=== PATIENT | male | born 1960 | race African-American/Black ===

== ENCOUNTER 2024-04-13 11:42 | Emergency (ER) | payer OTHER, SELFPAY ==
[2024-04-13 11:47] VITALS: BP 143/96
[2024-04-13 11:55] VITALS: BMI 18.6
[2024-04-13 12:00] VITALS: BP 129/99
[2024-04-13 12:27] LABS: % Basophils 0.2 % (0-2); % Eosinophils 0.2 % (0-6); % Immature Granulocytes 0.4 % (0-0.5); % Lymphocytes 15.9 % (20.5-51.1); % Monocytes 8.4 % (1.7-9.3); % Neutrophils 74.9 % (42.2-75.2); Absolute Lymphocytes 1.4 10^3/uL (1.2-3.4); Absolute Monocytes 0.7 10^3/uL (0.1-0.6); Absolute Neutrophils 6.4 10^3/uL (1.4-6.5); Hematocrit 46.1 % (39.0-52.0); Hemoglobin 14.4 g/dL (13.0-18.0); Mean Corp Hgb Conc. 31.2 g/dL (33.0-37.0); Mean Corpuscular Hgb 24.6 pg (27.0-31.0); Mean Corpuscular Volume 78.8 fL (80.0-94.0); Mean Platelet Volume 9.7 fL (7.4-10.4); Nucleated Red Blood Cells % 0 % (-); Platelet Count 216 10^3/uL (130-400); Red Blood Cell Count 5.85 10^6/uL (4.70-6.10); Red Cell Dist. Width 22.8 % (11.5-14.5); White Blood Cell Count 8.6 10^3/uL (4.8-10.8)
[2024-04-13 12:31] LABS: Blood Urea Nitrogen 22 mg/dl (9-20); Calcium 9.9 mg/dl (8.4-10.2); Carbon Dioxide 28 mmol/L (22-30); Chloride 96 mmol/L (98-107); Estimated Creatinine Clearance 77 ml/min; Glucose 128 mg/dl (70-99); Sodium 133 mmol/L (135-145); eGFR > 60.00
[2024-04-13 13:00] VITALS: BP 141/105
[2024-04-13 13:14] LABS: Normal RBC Morphology No
[2024-04-13 13:16] LABS: Ovalocytes FEW
[2024-04-13 13:17] LABS: Macrocytosis Slight
--- NOTE | 2024-04-13 13:37 | ED.GENMED ---
History of Present Illness
General
Chief Complaint: Heart Rate Problem
Source: patient
Time Seen by Provider: 04/13/24 13:23
History of Present Illness
History of Present Illness:
63-year-old male presents to the emergency room from the [facility] correction. Patient has been incarcerated there for the past 3 to 4 days. He has a history of atrial fibrillation which she states is chronic. He is under a rate control strategy.
He is prescribed Lopressor and Eliquis. He does not believe he got his Eliquis when he initially was admitted to the present. I did call the correction and they verified that he did receive a dose today. However he has not been receiving Lopressor as
they 'could not verify the prescription'. Patient also complaining of some nausea and sensation that he is withdrawing from opiates. Patient is prescribed methadone. He does not believe he is been getting that at the present either.
Phy Exam
Physical Exam
Physical Exam:
General: Awake, Alert, Oriented X3. No acute distress, thin, frail-appearing.
Vitals: Tachycardic
Head: Atraumatic
Eyes: Pupils equal, EOMI
Throat: Airway intact, no exudates
Neck: Trachea midline
Lungs: Clear and equal b/l
Heart: Regular rate, no murmurs
Abd: Soft, Nontender, No pulsatile mass
Neuro: Nonfocal
Skin: Warm, dry, no rash
Extremities: pulses equal b/l, no edema
Course
Orders/Labs/Results
Orders:
Orders
04/13/24 11:46
Electrocardiogram (*1) Urgent
Reason for Study: Atrial Fibrillation
EKG- Treatment ONCE
04/13/24 12:07
Basic Metabolic Panel Urgent
Complete Blood Count/With Diff Urgent
04/13/24 13:36
Metoprolol [Lopressor] 5 mg IV NOW STA
04/13/24 14:41
Acetaminophen with Codeine [Tylenol #3] 2 tablet PO NOW STA
04/13/24 14:42
Metoprolol [Lopressor] 5 mg IV NOW STA
04/13/24 14:59
Metoprolol [Lopressor] 100 mg PO NOW STA
Abnormal Lab Results
04/13/24
12:07
MCV 78.8 L fL
(80.0-94.0)
MCH 24.6 L pg
(27.0-31.0)
MCHC 31.2 L g/dL
(33.0-37.0)
RDW 22.8 H %
(11.5-14.5)
Absolute Monos (auto) 0.7 H 10^3/uL
(0.1-0.6)
Lymphocytes % 15.9 L %
(20.5-51.1)
Sodium 133 L mmol/L
(135-145)
Chloride 96 L mmol/L
(98-107)
BUN 22 H mg/dl
(9-20)
Glucose 128 H mg/dl
(70-99)
04/13/24 12:07
04/13/24 12:07
Vital Signs
Initial and Last Documented VS:
Initial Vital Signs
Temp Pulse Resp BP Pulse Ox
97.6 F 123 18 143/96 100
04/13/24 11:47 04/13/24 11:47 04/13/24 11:47 04/13/24 11:47 04/13/24 11:47
Last Documented Vital Signs
Temp Pulse Resp BP Pulse Ox
97.6 F 121 18 125/101 100
04/13/24 11:47 04/13/24 14:48 04/13/24 14:00 04/13/24 14:48 04/13/24 13:00
MDM/Problems Addressed
Differential Diagnosis Includes:
A-fib with rapid ventricular response, SVT, anemia, opiate withdrawal
MDM/Problems Addressed:
Patient sent to the emergency room from the correction. Patient has a known history of A-fib and the patient tells me he is chronically in A-fib. He had an ablation which did not result in long-term sinus rhythm and therefore his doctors in ER decided
to just follow a rate control strategy. He is doing this with Lopressor twice a day and Eliquis twice a day. Patient does not believe he received his Eliquis in the period of time when he was first arrested and then became incarcerated. I did
call the present and they are giving him his the Eliquis currently but have not been giving the Lopressor because 'they could not verify the prescription'. So this simply a situation where the patient's rate is not controlled because he has not
been provided the appropriate medications. We have given the patient 2 doses of IV Lopressor to bring his rate down. He is in the 90s to low 100s. Will give a dose of oral Lopressor and he can be discharged back to the correction.
Chronic conditions affecting care: Arrhythmia (Atrial fibrillation)
Acute Exacerbation and/or Progression of Chronic Illness: Arrhythmia
*Pulse Oximetry
Patient hypoxic: no
*EKG
Interpreted by ED Provider?: Yes
Interpretation: abnormal
Heart Rate: 126
Rate: tachycardiac
Rhythm: a-fib
[place]: normal axis
Interval: normal interval
QRS Pattern: normal QRS
Ischemia: non-specific ST changes
*[employer]sperson Interpretation
Rate: tachycardiac
Interpretation: abnormal
Heart Rate: 126
Rhythm: a-fib
*Critical Care Note
Total Time (30-74mins, 75-104mins- exclusive of procedures): Not Applicable
ED Attending Note
-
Portions of this chart may have been created with voice recognition software.� Occasional wrong word or��sound alike� substitutions may have occurred due to the inherent limitations of voice recognition software.
Discharge Plan
Departure
Patient Disposition: [facility]
Date of Disposition: 04/13/24
Time of Disposition: 14:59
Condition: Good
Discharge Problem:
Atrial fibrillation with RVR
Instructions: Atrial Fibrillation (DC)
Prescriptions:
New
metoprolol tartrate [Lopressor] 100 mg tablet
100 mg PO BID Qty: 60 0RF
Referrals:
[facility] [Family Provider] -
Interventions
Interventions:
*Risk Screen - Suicide Last Done: 04/13/24 11:54
*General Assessment Last Done: 04/13/24 11:54
*Neglect/Abuse Screening Last Done: 04/13/24 11:54
ED- Fall Risk Assessment Last Done: 04/13/24 11:57
*ED COVID-19 Vaccine History Last Done: 04/13/24 11:54
ED- Cardiac Assessment Last Done: 04/13/24 11:56
ED- Pulmonary Assessment Last Done: 04/13/24 11:56
Discharge Date and Time
Print Language: VIETNAMESE
[2024-04-13] MEDS: LOPRESSOR 5 MG IV ×2 (13:43→14:48)
[2024-04-13 14:00] VITALS: BP 136/95
[2024-04-13 14:45] VITALS: BP 125/101
[2024-04-13] MEDS: TYLENOL #3 2 TABLET PO (14:47)
[2024-04-13 15:00] VITALS: BP 112/84
[2024-04-13] MEDS: LOPRESSOR 100 MG PO (15:20)
== END 2024-04-13 16:05 ==
LOC: EMR 11:42
PROVIDERS: EMERGENCY PHYSICIAN Emergency Medicine
DX: I48.91 Unspecified atrial fibrillation (principal); Z79.01 Long term (current) use of anticoagulants
CPT/HCPCS: 99284; 96374; 96376; 80048; 85025; 93005

== ENCOUNTER 2024-05-05 08:52 | Emergency (ER) | payer OTHER, SELFPAY ==
[2024-05-05 09:07] VITALS: BP 149/105; BMI 21.8
--- NOTE | 2024-05-05 09:34 | ED.GENMED ---
History of Present Illness
General
Chief Complaint: Abdominal Pain
Time Seen by Provider: 05/05/24 09:24
History of Present Illness
History of Present Illness:
Patient is a 63-year-old male with history of A-fib, COPD, substance use, inguinal hernia s/p repair presenting to the emergency department abdominal pain. Patient states that he has had a left-sided hernia for many months now. He states that
before it would go back and easily. He does note that before it would go back in and out, when he would cough or strain. However now for the past few weeks he has not been able to get up again. He does state that he has been having some
constipation but he is on a bowel regimen and he does have history of constipation. He denies any fevers or chills. No changes overlying his hernia. He also notes he has been more short of breath lately and his hands have been slightly more
swollen. He does have history of venous stasis and states that his legs are at baseline. He denies any chest pain. No nausea vomiting. No diarrhea. No abdominal pain.
Phy Exam
Physical Exam
Physical Exam:
GENERAL: in no acute distress
HEENT: normocephalic, extraocular movements intact, moist oral mucosa
NECK: normal inspection
RESPIRATORY: no respiratory distress, clear to auscultation bilaterally
CARDIOVASCULAR: regular rate and rhythm
ABDOMEN/: soft, non-distended, non-tender to palpation, no rebound or guarding
Groin: Chaperoned by MOISES Mcdonald: Patient swelling to the left inguinal region with no overlying skin changes. Mild tenderness to the posterior left scrotum
EXTREMITIES: non-tender, bilateral lower extremity swelling with venous stasis changes
NEUROLOGIC: awake and alert, moves all extremities
SKIN: warm
Course
Orders/Labs/Results
Orders:
Orders
05/05/24 09:32
US Groin (Imaging Only) LT Urgent
Comment:
Reason For Exam: left inguinal hernia
US Scrotum Urgent
Comment:
Reason For Exam: left testicular pain
05/05/24 09:34
Electrocardiogram (*1) Urgent
Reason for Study: Shortness of Breath
EKG- Treatment ONCE
05/05/24 09:35
CR Chest - 2 Views Urgent
Comment:
Reason For Exam: sob
05/05/24 12:13
Complete Blood Count/With Diff Urgent
Comprehensive Metabolic Panel Urgent
NT-proBNP Urgent
Troponin I Urgent
Urinalysis Urgent
Date Specimen was Collected: 05/05/24
Time Specimen was Collected: 12:12
Abnormal Lab Results
05/05/24
12:13
RBC 4.42 L 10^6/uL
(4.70-6.10)
Hgb 11.4 L g/dL
(13.0-18.0)
Hct 36.1 L %
(39.0-52.0)
MCH 25.8 L pg
(27.0-31.0)
MCHC 31.6 L g/dL
(33.0-37.0)
RDW 22.4 H %
(11.5-14.5)
Absolute Monos (auto) 0.7 H 10^3/uL
(0.1-0.6)
Monocytes % 10.4 H %
(1.7-9.3)
Carbon Dioxide 31 H mmol/L
(22-30)
05/05/24 12:13
05/05/24 12:13
Vital Signs
Initial and Last Documented VS:
Initial Vital Signs
Pulse Resp Pulse Ox
92 10 100
05/05/24 09:03 05/05/24 09:03 05/05/24 09:03
Last Documented Vital Signs
Temp Pulse Resp BP Pulse Ox
98.1 F 90 23 144/97 100
05/05/24 09:07 05/05/24 12:45 05/05/24 12:45 05/05/24 12:00 05/05/24 11:15
MDM/Problems Addressed
Differential Diagnosis Includes:
Patient is a 63-year-old man presenting to the emergency department with left-sided inguinal swelling as well as some shortness of breath and ongoing leg swelling. On arrival vitals unremarkable. On exam patient does have some left inguinal
swelling. Will rule out obstructive/strangulated hernia. Will obtain ultrasound. Given the shortness of breath and swelling concern for pulmonary edema/new onset heart failure. Could be atypical ACS versus pneumonia though less likely. Will
check blood work with troponin BNP EKG and chest x-ray
*Critical Care Note
Total Time (30-74mins, 75-104mins- exclusive of procedures): Not Applicable
Update Note
Update Note:
Ultrasound consistent with this possible epididymal orchitis. Groin ultrasound is consistent with a nonspecific cyst likely reactive inguinal lymph node. No signs of hernia. Blood work does show elevated BNP. Chest x-ray per my interpretation
with no significant pulmonary vascular congestion. I have low suspicion for new onset heart failure. Likely secondary to the leg swelling. Patient does state that he was on Lasix but is not on it currently. Will prescribe short course Lasix.
Patient to follow-up with the medical team at [facility] about the shortness of breath leg swelling. Regarding the lymph node patient advised to follow with medical team at [facility] if it does not resolve. Will discharge him with antibiotics for the
infection as well as Lasix.
ED Attending Note
-
Portions of this chart may have been created with voice recognition software.� Occasional wrong word or��sound alike� substitutions may have occurred due to the inherent limitations of voice recognition software.
Discharge Plan
Departure
Patient Disposition: Home (Routine Discharge)
Date of Disposition: 05/05/24
Time of Disposition: 12:56
Patient with high blood pressure during this ER visit?: No
Discharge Problem:
Epididymitis, Lymph node enlargement
Prescriptions:
New
furosemide [Lasix] 20 mg tablet
20 mg PO DAILY 3 Days Qty: 3 0RF
levofloxacin 500 mg tablet
500 mg PO DAILY 10 Days Qty: 10 0RF
No Action
metoprolol tartrate [Lopressor] 100 mg tablet
100 mg PO BID Qty: 60 0RF
Referrals:
[facility],Fac[facility] [Family Provider] -
Activity Restrictions/Additional Instructions:
You were seen in the Emergency Department today for groin swelling and leg swelling. While you were here I started you on a water pill called Lasix. Please take it for 3 days and then follow-up with your medical team to have it continued. Please
make sure you follow-up with the medical team for an ultrasound on your lymph node. I did prescribe you antibiotics for your infection. Please take it as prescribed.
We would like for you to follow up with your primary care physician for further evaluation. If you experience fever, worsening of your symptoms, or develop any other new or concerning symptoms, please return to the Emergency Department immediately.
Please see the attached sheet for additional information.
Interventions
Interventions:
*Risk Screen - Suicide Last Done: 05/05/24 08:57
*General Assessment Last Done: 05/05/24 08:57
*Neglect/Abuse Screening Last Done: 05/05/24 08:57
*ED COVID-19 Vaccine History Last Done: 05/05/24 09:07
UJ-[id number]-[id number] Assessment Last Done: 05/05/24 09:13
Discharge Date and Time
Print Language: STATELESS
[2024-05-05 10:00] VITALS: BP 144/104
[2024-05-05 12:00] VITALS: BP 144/97
[2024-05-05 12:25] LABS: Urine Albumin Negative (Neg - Trace); Urine Bilirubin Negative (Negative); Urine Character Clear (Clear); Urine Color Yellow; Urine Glucose Negative (Negative); Urine Ketone Negative (Negative); Urine Leukocyte Negative (Negative); Urine Nitrite Negative (Negative); Urine Occult Blood Negative (Negative); Urine Urobilinogen Negative (Neg - 1+)
[2024-05-05 12:31] LABS: % Basophils 0.8 % (0-2); % Eosinophils 4.4 % (0-6); % Immature Granulocytes 0.2 % (0-0.5); % Lymphocytes 24.8 % (20.5-51.1); % Monocytes 10.4 % (1.7-9.3); % Neutrophils 59.4 % (42.2-75.2); Absolute Basophils 0.1 10^3/uL (0-0.2); Absolute Eosinophils 0.3 10^3/uL (0-0.7); Absolute Lymphocytes 1.7 10^3/uL (1.2-3.4); Absolute Monocytes 0.7 10^3/uL (0.1-0.6); Hematocrit 36.1 % (39.0-52.0); Hemoglobin 11.4 g/dL (13.0-18.0); Mean Corp Hgb Conc. 31.6 g/dL (33.0-37.0); Mean Corpuscular Hgb 25.8 pg (27.0-31.0); Mean Corpuscular Volume 81.7 fL (80.0-94.0); Mean Platelet Volume 9.4 fL (7.4-10.4); Nucleated Red Blood Cells % 0 % (-); Platelet Count 240 10^3/uL (130-400); Red Blood Cell Count 4.42 10^6/uL (4.70-6.10); Red Cell Dist. Width 22.4 % (11.5-14.5); White Blood Cell Count 6.7 10^3/uL (4.8-10.8)
[2024-05-05 12:33] LABS: ALT (SGPT) 27 U/L (0-50); AST (SGOT) 41 U/L (17-59); Albumin 3.7 g/dl (3.5-5.0); Alkaline Phosphatase 106 U/L (38-126); Blood Urea Nitrogen 18 mg/dl (9-20); Calcium 9.4 mg/dl (8.4-10.2); Carbon Dioxide 31 mmol/L (22-30); Chloride 99 mmol/L (98-107); Estimated Creatinine Clearance 82 ml/min; Glucose 76 mg/dl (70-99); Potassium 4.5 mmol/L (3.5-5.1); Sodium 137 mmol/L (135-145); Total Bilirubin 0.4 mg/dl (0.2-1.3); Total Protein 6.7 g/dl (6.3-8.2); eGFR > 60.00
[2024-05-05 12:44] LABS: NT-proBNP 1940 pg/ml; Troponin I < 0.012 ng/ml
[2024-05-05 13:22] LABS: Anisocytosis 2+; Hypochromasia 1+; Normal RBC Morphology No; Target Cells 1+
== END 2024-05-05 13:15 | disposition home or self-care (01) ==
LOC: EMR 08:52
PROVIDERS: EMERGENCY PHYSICIAN Student in an Organized Health Care Education/Training Program
DX: N45.1 Epididymitis (principal); R59.9 Enlarged lymph nodes, unspecified; I48.91 Unspecified atrial fibrillation; J44.9 Chronic obstructive pulmonary disease, unspecified
CPT/HCPCS: 99285; 71046; 76870; 76882; 80053; 81003; 83880; 84484; 85025; 93005; 93976

== ENCOUNTER 2024-05-20 19:53 | Emergency (ER) | payer OTHER, SELFPAY ==
--- NOTE | 2024-05-20 20:00 | ED.GENMED ---
History of Present Illness
General
Chief Complaint: Swelling
Time Seen by Provider: 05/20/24 20:00
History of Present Illness
History of Present Illness:
TIME OF INITIAL ENCOUNTER: 8:15 PM
HPI: Patient came in by corrections officers from [facility]. They over the past month or so he has been having swelling of the left groin 'more often than not'. There is some discomfort associated with it however he
usually can get the hernia back in. However he was told that this was not a hernia and that he was treated for epididymitis. The nurse practitioner at the facility given additional antibiotics as symptoms persisted. There has been no vomiting.
He is hungry and wants something to eat.
EXAM:
GENERAL: Well appearing in no distress, appears comfortable
HEENT: Moist oral mucosa, poor dentition
CARDIOVASCULAR: No murmurs, normal heart rate, irregular rhythm, No chest wall tenderness
PULMONARY: No respiratory distress, breath sounds are clear and equal
ABDOMEN: Soft with no peritoneal signs, no tenderness, there is a large inguinal hernia approximately softball sized on the left side
NEUROLOGIC: Excellent strength all extremities, no coordination deficits
PSYCHIATRIC: Appropriate mental status, normal insight and judgement
EXTREMITIES: Nontender, no edema, moves all extremities equally
SKIN: No rash, no lesions
NUMBER AND COMPLEXITY OF PROBLEMS ADDRESSED AT THE ENCOUNTER
� Chronic conditions affecting care: COPD, A-fib, history of substance abuse
� Acute Exacerbation and/or Progression of Chronic Illness: This is an acute/subacute problem
� Differential Diagnosis includes: Inguinal hernia, nonreducible hernia, incarcerated hernia, bowel obstruction
AMOUNT AND/OR COMPLEXITY OF DATA TO BE REVIEWED AND ANALYZED
� I performed an independent evaluation of and my interpretation is:
EKG:
CT:
X-rays:
Laboratory Studies:
Other:
� Review of other/old records: I reviewed records. The patient was seen here and diagnosed with epididymitis 2 weeks ago and he was seen here related to A-fib issues nearly 2 months ago
� Clinical information was obtained by an independent historian: Spoke to [facility] officers at bedside
� Prescriptions/Medications Considered but not given:
� Further testing considered but not performed: Considered CT imaging however the patient has an easily reducible hernia
RISK OF COMPLICATIONS AND/OR MORBIDITY OR MORTALITY OF PATIENT MANAGEMENT
� Social determinants of health affecting care: Currently at [facility]
� Discussion with other providers: I discussed case with Dr. Randall who recommends truss hernia belt and follow-up with him in the office.
� Escalation of care including admission/observation vs risk of discharge considered: On initial examination, I was unable to reduce the hernia however as we laid the patient flat and about the place ice, the patient was able to
manipulate the hernia and it went back into position appropriately. I have placed on the paperwork for them to call Dr. Randall to arrange follow-up and at Dr. Randall's recommendation to have them obtain a hernia truss belt.
ANY OTHER UPDATES:
Phy Exam
Physical Exam
Physical Exam:
See HPI
Scores
Heart Failure Risk
Heart Failure Risk Score: Not Applicable
Course
Vital Signs
Initial and Last Documented VS:
Initial Vital Signs
Temp Pulse Resp BP Pulse Ox
36.9 C 82 18 128/89 100
05/20/24 20:04 05/20/24 20:04 05/20/24 20:04 05/20/24 20:04 05/20/24 20:04
Last Documented Vital Signs
Temp Pulse Resp BP Pulse Ox
36.9 C 82 18 128/89 100
05/20/24 20:04 05/20/24 20:04 05/20/24 20:04 05/20/24 20:04 05/20/24 20:04
*Critical Care Note
Total Time (30-74mins, 75-104mins- exclusive of procedures): Not Applicable
ED Attending Note
-
Portions of this chart may have been created with voice recognition software.� Occasional wrong word or��sound alike� substitutions may have occurred due to the inherent limitations of voice recognition software.
Discharge Plan
Departure
Patient Disposition: Halfway
Date of Disposition: 05/20/24
Time of Disposition: 20:19
Discharge Problem:
Inguinal hernia
Instructions: Groin hernias, BLOOD PRESSURE
Prescriptions:
No Action
metoprolol tartrate [Lopressor] 100 mg tablet
100 mg PO BID Qty: 60 0RF
furosemide [Lasix] 20 mg tablet
20 mg PO DAILY 3 Days Qty: 3 0RF
levofloxacin 500 mg tablet
500 mg PO DAILY 10 Days Qty: 10 0RF
Referrals:
[facility] [Family Provider] -
Shamir Randall MD [Active] - Next open appointment
Activity Restrictions/Additional Instructions:
On exam tonight, you clearly have a large but reducible inguinal hernia on the left side. I therefore spoke to his surgeon, Dr. Randall. He recommended that you obtain a hernia truss belt to help keep the hernia in position. If it does come back
out, I recommend that you do what you did tonight by laying down flat. The skilled nursing should call Dr. Randall to arrange outpatient follow-up.
Interventions
Interventions:
*Risk Screen - Suicide Last Done: 05/20/24 20:04
*General Assessment Last Done: 05/20/24 20:04
*Neglect/Abuse Screening Last Done: 05/20/24 20:04
Discharge Date and Time
Print Language: FIJIAN
[2024-05-20 20:04] VITALS: BP 128/89
== END 2024-05-20 21:40 ==
LOC: EMR 19:53
PROVIDERS: EMERGENCY PHYSICIAN Emergency Medicine
DX: K40.90 Unilateral inguinal hernia, without obstruction or gangrene, not specified as recurrent (principal); J44.9 Chronic obstructive pulmonary disease, unspecified; I48.91 Unspecified atrial fibrillation
CPT/HCPCS: 99282